=== PATIENT | female | born 1925 | race Caucasian/White ===

== ENCOUNTER 2016-05-12 21:01 | Emergency (ER) | payer MEDICARE, MEDICAID ==
[2016-05-12] MEDS ORDERED: Meclizine TAB* 12.5 MG PO ONE (21:59)
--- NOTE | 2016-05-12 22:08 | RAD ---
HISTORY: Dizziness COMPARISONS: February 27, 2016 VIEWS: 2: Frontal and lateral views of the chest. FINDINGS: CARDIOMEDIASTINAL SILHOUETTE: The cardiomediastinal silhouette is normal. LEMUEL: The lemuel are normal. PLEURA: The costophrenic angles are sharp. No pleural abnormalities are noted. LUNG PARENCHYMA: There is hyperinflation with flattening of the diaphragm and expansion of the AP diameter of the chest. ABDOMEN: The upper abdomen is clear. There is no subphrenic gas. BONES AND SOFT TISSUES: Degenerative changes are noted. There is diffuse osteopenia. OTHER: None. IMPRESSION: HYPERINFLATION, CONSISTENT WITH COPD. NO ACTIVE CARDIOPULMONARY DISEASE.
--- NOTE | 2016-05-12 22:12 | RAD ---
HISTORY: Dizziness COMPARISONS: February 22, 2014 TECHNIQUE: Multiple contiguous axial CT scans were obtained of the head without intravenous contrast. FINDINGS: HEMORRHAGE/INFARCT: There is no hemorrhage or acute infarct. MASSES/SHIFT: There is no mass or shift. EXTRA-AXIAL SPACES: There are no extra-axial fluid collections. SULCI AND VENTRICLES: The sulci and ventricles are normal in size and position for the patient's stated age. CEREBRUM: There is hypoattenuation of the periventricular and subcortical white matter. BRAINSTEM: There are no focal parenchymal abnormalities. CEREBELLUM: There are no focal parenchymal abnormalities. VESSELS: There is calcification of the cavernous segments of the internal carotid arteries bilaterally. PARANASAL SINUSES: The paranasal sinuses are clear. ORBITS: The orbits are unremarkable. BONES AND SOFT TISSUE: No bone or soft tissue abnormalities are noted. OTHER: None IMPRESSION: NO ACUTE INTRACRANIAL PATHOLOGY. CHRONIC SMALL VESSEL ISCHEMIC CHANGES.
[2016-05-12 22:33] LABS: Hematocrit 39 % (35-47); Hemoglobin 12.7 g/dl (12.0-16.0); Mean Corpuscular HGB Conc 33 g/dl (31-36); Mean Corpuscular Hemoglobin 31 pg (27-31); Mean Corpuscular Volume 96 fL (80-97); Mean Platelet Volume 9 um3 (7.4-10.4); Red Blood Count 4.05 10^6/ul (4.0-5.4); Red Cell Distribution Width 15 % (10.5-15); White Blood Count 9.6 10^3/ul (3.5-10.8)
[2016-05-12 22:49] LABS: Albumin 3.9 g/dL (3.2-5.2); BUN/Creatinine Ratio 22.8 (8-20); Calcium 9.7 mg/dL (8.6-10.3); EGFR Non-African American 41.2 (>60); Globulin 2.7 g/dL (2-4); Magnesium 2.2 mg/dL (1.9-2.7); Potassium 4.3 mmol/L (3.5-5.0); Total Bilirubin 0.4 mg/dL (0.2-1.0); Total Protein 6.6 g/dL (6.4-8.9)
[2016-05-12 22:59] LABS: TSH (Thyroid Stimulating Horm) 2.07 mcIU/mL (0.34-5.60)
--- NOTE | 2016-05-12 23:16 | ED ---
Kane Mckay Erika, scribed for Ammon Darnell MD on 05/12/16 at 2152 . Throat Pain/Nasal Congestion - HPI Summary HPI Summary: Patient is an 89-year-old female presenting to the ED with a CC of constant sinus pressure for 1 week. She states her "head feels full." She also reports a fullness in her ears. Associated symptoms include dizziness and nasal congestion. She denies fever, chills, chest pain, SOB, and cough. She reports she was unable to see her PCP because her PCP was sick. Hx vertigo. Pt smokes daily. - History of Current Complaint Chief Complaint: EDEarPain Time Seen by Provider: 05/12/16 21:31 Hx Obtained From: Patient Onset/Duration: Gradual Onset, Lasting Weeks - 1 week, Still Present Severity: Moderate Associated Signs And Symptoms: Positive: Sinus Discomfort, Nasal Discharge Cough: None - Allergies/Home Medications Allergies/Adverse Reactions: Allergies Allergy/AdvReac Type Severity Reaction Status Date / Time Alendronate [From Fosamax] Allergy Unknown Unknown Verified 02/27/16 11:01 Reaction Details Risedronate [From Actonel] Allergy Unknown Unknown Verified 02/27/16 11:01 Reaction Details Rofecoxib [From Vioxx] Allergy Unknown Unknown Verified 02/27/16 11:01 Reaction Details Penicillins [PCN] Allergy Unknown Verified 02/27/16 11:01 Reaction Details Tetracyclines Allergy Unknown Verified 02/27/16 11:01 Reaction Details Antihistamines, AdvReac Intermediate Nausea Verified 02/27/16 11:01 Chlorpheniramine-ty PMH/Surg Hx/FS Hx/Imm Hx Cardiovascular History: Reports: Hx Hypertension Respiratory History: Reports: Hx Chronic Obstructive Pulmonary Disease (COPD) Musculoskeletal History: Reports: Hx Osteoporosis - Surgical History Surgery Procedure, Year, and Place: HYSTERECTOMY Infectious Disease History: No Infectious Disease History: Denies: Traveled Outside the [place] in Last 30 Days - Family History Known Family History: Negative: Cardiac Disease Family History: FHx of emphysema - Social History Alcohol Use: None Hx Substance Use: No Substance Use Type: Reports: None Hx Tobacco Use: Yes Smoking Status (MU): Current Every Day Smoker Review of Systems Negative: Fever, Chills ENT: Other - sinus pressure Positive: Ear Ache, Nasal Discharge Negative: Shortness Of Breath, Cough Neurological: Other - dizziness All Other Systems Reviewed And Are Negative: Yes Physical Exam - Summary Physical Exam Summary: VITAL SIGNS: Reviewed. GENERAL: Patient is a thin female who is lying comfortable in the stretcher. Patient is not in any acute respiratory distress. HEAD AND FACE: No signs of trauma. No ecchymosis, hematomas or skull depressions. No sinus tenderness. EYES: PERRLA, EOMI x 2, No injected conjunctiva, no nystagmus. No photophobia. EARS: Hearing grossly intact. Ear canals and tympanic membranes are within normal limits. MOUTH: Oropharynx within normal limits. NECK: Supple, trachea is midline, no adenopathy, no JVD, no carotid bruit, no c- spine tenderness, neck with full ROM. No meningeal signs, no Kernig's or brudzinskis signs. CHEST: Symmetric, no tenderness at palpation LUNGS: Clear to auscultation bilaterally. No wheezing or crackles. CVS: Regular rate and rhythm, S1 and S2 present, no murmurs or gallops appreciated. ABDOMEN: Soft, non-tender. No signs of distention. No rebound no guarding, and no masses palpated. Bowel sounds are normal. EXTREMITIES: FROM in all major joints, no edema, no cyanosis or clubbing. NEURO: Alert and oriented x 3. No acute neurological deficits. Speech is normal and follows commands. SKIN: Dry and warm Triage Information Reviewed: Yes Vital Signs On Initial Exam: Initial Vitals Temp Pulse Resp BP Pulse Ox 98.9 F 62 18 138/45 93 05/12/16 21:27 05/12/16 21:27 05/12/16 21:27 05/12/16 21:27 05/12/16 21:27 Vital Signs Reviewed: Yes Diagnostics - Vital Signs Vital Signs Temp Pulse Resp BP Pulse Ox 05/12/16 21:27 98.9 F 62 18 138/45 93 - Laboratory Result Diagrams: 05/12/16 22:20 05/12/16 22:20 Lab Statement: Any lab studies that have been ordered have been reviewed, and results considered in the medical decision making process. - Radiology CXR Radiology Interpretation Completed By: Radiologist - IMPRESSION: HYPERINFLATION , CONSISTENT WITH COPD. NO ACTIVE CARDIOPULMONARY DISEASE. - CT CT Brain CT Interpretation Completed By: Radiologist - IMPRESSION: NO ACUTE INTRACRANIAL PATHOLOGY. CHRONIC SMALL VESSEL ISCHEMIC CHANGES. - EKG 22:04 Cardiac Rate: NL - at 62 bpm EKG Rhythm: Sinus Rhythm EKG Interpretation: No ST elevation EENT Course/Dx - Course Assessment/Plan: Patient is an 89-year-old female presenting to the ED with a CC of constant sinus pressure for 1 week. She states her "head feels full." She also reports a fullness in her ears. Associated symptoms include dizziness and nasal congestion. She denies fever, chills, chest pain, SOB, and cough. She reports she was unable to see her PCP because her PCP was sick. Hx vertigo. Pt smokes daily. Blood work WNL except for increased BUN and creatinine, which is her baseline. Head CT shows no intracranial pathology. CXR shows no acute intrathoracic pathology. In the ED course, the pt was given meclizine, and symptoms have resolved. Pt reports she is feeling better, and her heaviness and dizziness are gone. Therefore the pt will be discharged home with follow up from her PCP. Pt is A&Ox3 and hemodynamically stable. I discussed all the findings and test results with the patient. Patient was instructed to return to the emergency room immediately if any of the symptoms return or worsens. Patient understands and agrees. Plan of care was discussed with the patient and patient understands and agrees with the plan of care. All questions were answered at patient satisfaction. There were no further complaints or concerns. Patient is alert and oriented x 3. Patient vital signs are stable. Patient is to follow up with primary care physician in the next 2 to 3 days. Patient understands and agrees. - Differential Diagnoses Differential Diagnoses: Mastoiditis, Otitis Externa, Otitis Media, Sinusitis - Diagnoses Provider Diagnoses: Vertigo Discharge - Discharge Plan Condition: Stable Disposition: HOME Prescriptions: Meclizine TAB* [Antivert 12.5 TAB*] 25 mg PO TID PRN #15 tab PRN Reason: Vertigo Patient Education Materials: Vertigo (ED) Referrals: Chelsea Britt MD [Primary Care Provider] - The documentation as recorded by the Kane murrell Erika accurately reflects the service I personally performed and the decisions made by me, Ammon Darnell MD.
[2016-05-12 23:24] VITALS: BP 132/49
== END 2016-05-12 23:59 | disposition home or self-care (01) ==
LOC: ED 21:01
DX: R42 Dizziness and giddiness (principal); H92.09 Otalgia, unspecified ear; F17.210 Nicotine dependence, cigarettes, uncomplicated
CPT/HCPCS: 36415; 70450; 71020; 80053; 83735; 83880; 84443; 84484; 85025; 93005; 99283; A9270-GY

== ENCOUNTER 2017-06-28 11:28 | Emergency (ER) | payer MEDICARE, MEDICAID ==
--- NOTE | 2017-06-28 12:19 | RAD ---
HISTORY: Head injury COMPARISONS: May 12, 2016 TECHNIQUE: Multiple contiguous axial CT scans were obtained of the head without intravenous contrast. FINDINGS: HEMORRHAGE/INFARCT: There is no hemorrhage or acute infarct. MASSES/SHIFT: There is no mass or shift. EXTRA-AXIAL SPACES: There are no extra-axial fluid collections. SULCI AND VENTRICLES: The sulci and ventricles are normal in size and position for the patient's stated age. CEREBRUM: There is hypoattenuation of the periventricular and subcortical white matter, stable from the previous examination.. BRAINSTEM: There are no focal parenchymal abnormalities. CEREBELLUM: There are no focal parenchymal abnormalities. VESSELS: The vessels are grossly normal. PARANASAL SINUSES: The paranasal sinuses are clear. ORBITS: The orbits are unremarkable. BONES AND SOFT TISSUE: No bone or soft tissue abnormalities are noted. OTHER: None IMPRESSION: NO ACUTE INTRACRANIAL PATHOLOGY. CHRONIC SMALL VESSEL ISCHEMIC CHANGE.
--- NOTE | 2017-06-28 12:28 | RAD ---
HISTORY: Head injury, fall, neck pain COMPARISONS: None TECHNIQUE: Multiple contiguous axial CT scans were obtained of the cervical spine without intravenous contrast, with coronal and sagittal multiplanar reformations. FINDINGS: BRAIN: The visualized brain is unremarkable CENTRAL CANAL: Evaluation of the central canal is limited on CT technique; however, there is no obvious canalicular mass or epidural hemorrhage. ALIGNMENT: There is trace anterolisthesis of C6 on C7 and C7 on T1. VERTEBRAL BODIES: There is diffuse osteopenia. There is no displaced fracture. There is multilevel anterolateral marginal osteophyte formation. JOINTS: There is diffuse uncovertebral and facet osteoarthritis. MUSCULATURE: Unremarkable INTERVERTEBRAL DISCS: There is diffuse loss of intervertebral disc height. AXIAL IMAGES: C2-C3: There is no osseous neural foraminal narrowing or central canal stenosis. C3-C4: There is a broad-based disc osteophyte complex with bilateral uncovertebral and facet hypertrophy. There is severe bilateral neural foraminal narrowing. There is moderate narrowing of the central canal. C4-C5: There is bilateral uncovertebral facet hypertrophy. There is severe bilateral neural foraminal narrowing. There is mild narrowing of the central canal. C5-C6: There is bilateral uncovertebral facet hypertrophy. There is moderate bilateral neural foraminal narrowing. There is no osseous central canal stenosis. C6-C7: There is no osseous neural foraminal narrowing or central canal stenosis. C7-T1: There is no osseous neural foraminal narrowing or central canal stenosis. SOFT TISSUES: There is biapical centrilobular emphysematous change. Calcified granulomas noted of the left upper lobe. The prevertebral fat stripe is preserved. There is calcification of the carotid bifurcations bilaterally. The thyroid gland is atrophic/hypoplastic. OTHER: None. IMPRESSION: 1. OSTEOPENIA. 2. DEGENERATIVE DISC DISEASE AND OSTEOARTHRITIS. 3. EMPHYSEMA. 4. NO ACUTE OSSEOUS INJURY TO THE CERVICAL SPINE
--- NOTE | 2017-06-28 12:35 | RAD ---
INDICATION: Right shoulder pain COMPARISON: December 16, 2016 TECHNIQUE: Routine frontal, Y and axial views were obtained. FINDINGS: There is osteopenia. There is AC joint osteoarthritis. The glenohumeral joint is intact. There are findings of calcific tendinitis. IMPRESSION: AC JOINT OSTEOARTHRITIS. CALCIFIC TENDINITIS.
--- NOTE | 2017-06-28 14:12 | ED ---
Brendan Mckay Jennifer, scribed for Willard Owens on 06/28/17 at 1156 . Head Injury - HPI Summary HPI Summary: The patient is an 89 year old female who arrives via EMS due to a fall today. She states she fell in her bathroom but denies loss of consciousness. The patient complains of right sided head pain near her eye and right shoulder pain. She denies neck pain. The patient denies being on blood thinners. - History Of Current Complaint Chief Complaint: EDHeadInjury Stated Complaint: FALL Time Seen by Provider: 06/28/17 11:39 Hx Obtained From: Patient Mechanism Of Injury: Fall From A Standing Position Onset/Duration: Atraumatic Onset of Pain: Immediate Severity Currently: Moderate Severity Initially: Moderate Pain Intensity: 6 Pain Scale Used: 0-10 Numeric Location of Head Injury: Other: - Above right eye Character: Other: - Laceration Associated Signs And Symptoms: Other: - right shoulder pain. NEGATIVE: neck pain , loss of consciousness - Allergies/Home Medications Allergies/Adverse Reactions: Allergies Allergy/AdvReac Type Severity Reaction Status Date / Time alendronate sodium Allergy Unknown Verified 06/28/17 11:48 [From Fosamax] Reaction Details Penicillins Allergy Unknown Verified 06/28/17 11:48 Reaction Details risedronate sodium Allergy Unknown Verified 06/28/17 11:48 [From Actonel] Reaction Details rofecoxib [From Vioxx] Allergy Unknown Verified 06/28/17 11:48 Reaction Details tetracycline Allergy Unknown Verified 06/28/17 11:48 Reaction Details antihistamines AdvReac Nausea Uncoded 06/28/17 11:48 PMH/Surg Hx/FS Hx/Imm Hx Cardiovascular History: Reports: Hx Hypertension Respiratory History: Reports: Hx Chronic Obstructive Pulmonary Disease (COPD) Musculoskeletal History: Reports: Hx Osteoporosis - Surgical History Surgery Procedure, Year, and Place: HYSTERECTOMY Infectious Disease History: No Infectious Disease History: Denies: Traveled Outside the [place] in Last 30 Days - Family History Known Family History: Negative: Cardiac Disease Family History: FHx of emphysema - Social History Alcohol Use: None Hx Substance Use: No Substance Use Type: Reports: None Hx Tobacco Use: Yes Smoking Status (MU): Current Every Day Smoker Review of Systems Positive: Other - Laceration above right eye Musculoskeletal: Negative - neck pain Positive: Other - Right shoulder pain Neurological: Negative - Loss of consciousness All Other Systems Reviewed And Are Negative: Yes Physical Exam - Summary Physical Exam Summary: Appearance: Well appearing, no pain distress Skin: warm, dry, reflects adequate perfusion Head/face: 1cm laceration over the right eyebrow Eyes: EOMI, GILES ENT: normal Neck: supple, non-tender Respiratory: CTA, breath sounds present Cardiovascular: RRR, pulses symmetrical ~ Abdomen: non-tender, soft Bowel: present Musculoskeletal: mild tenderness in right shoulder, strength/ROM intact Neuro: normal, sensory motor intact, A&Ox3 Triage Information Reviewed: Yes Vital Signs On Initial Exam: Initial Vitals Temp Pulse Resp BP Pulse Ox 98 F 58 17 141/49 95 06/28/17 11:35 06/28/17 11:35 06/28/17 11:35 06/28/17 11:35 06/28/17 11:35 Vital Signs Reviewed: Yes Procedures - Laceration/Wound Repair 1 Location: head Length, Depth and Shape: 2cm Closure: Skin Adhesive Diagnostics - Vital Signs Vital Signs Temp Pulse Resp BP Pulse Ox 06/28/17 11:35 98 F 58 17 141/49 95 - Laboratory Lab Statement: Any lab studies that have been ordered have been reviewed, and results considered in the medical decision making process. - Radiology Shoulder XR Xray Interpretation: No Acute Changes - AC JOINT OSTEOARTHRITIS. CALCIFIC TENDINITIS. Dr. Owens has reviewed this report. Radiology Interpretation Completed By: Radiologist - CT CT Brain CT Interpretation: No Acute Changes - NO ACUTE INTRACRANIAL PATHOLOGY. CHRONIC SMALL VESSEL ISCHEMIC CHANGE. Dr. Owens has reviewed this report. CT Interpretation Completed By: Radiologist CT C-Spine CT Interpretation: No Acute Changes - 1. OSTEOPENIA. 2. DEGENERATIVE DISC DISEASE AND OSTEOARTHRITIS. 3. EMPHYSEMA. 4. NO ACUTE OSSEOUS INJURY TO THE CERVICAL SPINE. Dr. Owens has reviewed this report. CT Interpretation Completed By: Radiologist Head Injury Course/Dx Course Of Treatment: The patient is an 89 year old female who arrives via EMS due to a fall today. She complains of right sided head pain near her eye and right shoulder pain. CT Brain, CT C-Spine, and Shoulder XR were obtained. The patient is diagnosed with head injury and laceration of face. 2cm laceration was closed with skin adhesive. Patient is instructed to follow up with PCP in 3 days. - Diagnoses Differential Diagnosis/HQI/PQRI: Cerebral Contusion, Contusion, Hematoma, Intracranial Bleed, Laceration Provider Diagnoses: Head injury, Laceration of face Discharge - Sign-Out/Discharge Documenting (check all that apply): Discharge - Discharge Plan Condition: Stable Disposition: HOME Patient Education Materials: Laceration (ED), Head Injury (ED) Referrals: Chelsea Britt MD [Primary Care Provider] - 3 Days Additional Instructions: Follow up with your primary care physician in three days. Return to the emergency department for any new or worsening symptoms. - Billing Disposition and Condition Condition: STABLE Disposition: HOME The documentation as recorded by the Brendan murrell Jennifer accurately reflects the service I personally performed and the decisions made by , Willard Owens.
[2017-06-28 17:58] VITALS: BP 119/74
== END 2017-06-28 14:15 | disposition home or self-care (01) ==
LOC: ED 11:28
DX: S01.81XA Laceration without foreign body of other part of head, initial encounter (principal); M25.511 Pain in right shoulder; W19.XXXA Unspecified fall, initial encounter; Y92.9 Unspecified place or not applicable; F17.210 Nicotine dependence, cigarettes, uncomplicated; S09.90XA Unspecified injury of head, initial encounter; M85.80 Other specified disorders of bone density and structure, unspecified site; M81.0 Age-related osteoporosis without current pathological fracture
CPT/HCPCS: 36415; 70450; 72125; 80048; 99282